=== PATIENT | male | born 1970 | race American Indian/Alaskan Native ===

== ENCOUNTER 2020-10-27 10:12 | Outpatient (CLI) | payer OTHER ==
[2020-10-27 11:37] LABS: Blood Urea Nitrogen 16 mg/dL (9-20)
--- NOTE | 2020-10-27 13:02 | Cat Scan Report ---
CT ABDOMEN AND PELVIS WITH CONTRAST HISTORY: MASS. ATTN: PANCREAS COMPARISON: None. TECHNIQUE: Axial CT images were obtained through the abdomen and pelvis after 100 cc of IV contrast. Sagittal and coronal reformatted images. All CT scans at this location are performed using CT dose re duction for ALARA by means of automated exposure control. FINDINGS: CT ABDOMEN: Lung Bases: Clear. Liver: No significant abnormality. Biliary: No significant abnormality. Spleen: No significant abnormality. Unenlarged. Pancreas: No significant abnormality. No evidence for mass, pseudocyst or inflammation. Adrenals: No significant abnormality. Kidneys: No significant abnormality. Lymphatics: No lymphadenopathy. Vasculature: No significant abnormality. Bowel/Peritoneum: No significant abnormality. No free air. No free fluid. Normal appendix. CT PELVIS: : No significant abnormality. Osseous Structures: Bilateral chronic L4 pars defects are identified with 1 cm anterolisthesis of L4 with respect to L5. Severe degenerative disc disease at L4-5. Additional Findings: None IMPRESSION: Essentially unremarkable exam of the abdomen and pelvis. The pancreas is unremarkable. Grade 2 anterolisthesis of L4 with respect to L5 with degenerative changes. Signer Name: Zafar Hernandez Jr, MD Signed: 10/27/2020 12:58 PM Workstation Name: [id number]
== END 2020-10-27 10:13 | disposition home or self-care (01) ==
LOC: CT 10:12
PROVIDERS: ATTEND Internal Medicine
DX: R19.04 Left lower quadrant abdominal swelling, mass and lump (principal); M43.16 Spondylolisthesis, lumbar region; M47.816 Spondylosis without myelopathy or radiculopathy, lumbar region
CPT/HCPCS: 36415; 74177; 82565; 84520; Q9967